=== PATIENT | female | born 1975 | race Hispanic/Latino ===

== ENCOUNTER 2020-04-03 23:20 | Emergency (ER) | payer BC ==
[2020-04-04 00:22] VITALS: BP 121/71
[2020-04-04] MEDS ORDERED: IBUPROFEN 600 MG TAB PO ONE (04:08)
[2020-04-04] MEDS ORDERED: ACETAMINOPHEN 500 MG TAB PO ONE (04:08)
--- NOTE | 2020-04-04 05:14 | XRay Report ---
SACRUM AND COCCYX 3 VIEWS INDICATION / CLINICAL INFORMATION: Pain: fall. COMPARISON: None available. FINDINGS: Mild irregularity at the sacrococcygeal junction. No other significant skeletal abnormality Signer Name: Christophe Jeffries MD FACR Signed: 04/04/2020 5:10 AM Workstation Name: [id number]
--- NOTE | 2020-04-04 05:58 | Emergency Department Report ---
ED Fall HPI - General Chief Complaint: Fall Stated Complaint: FALL INJURY HURT TAILBONE BACK Source: patient Mode of arrival: Ambulatory - History of Present Illness Initial Comments: Patient is a 45-year-old white female with a history of bipolar disorder and who is currently at a drug rehab facility presents to the ED with complaint of acute onset persistent severe coccygeal pain after she fell off a chair but broke off about 12 hours ago. Patient states that there was sitting sharing the chair with another individual when their weight broke off the chair which she states was old and the ended up falling off the chair and landing on the concrete floor. Patient states that the pain was initially mild but subsequently she woke up with severe coccygeal pain 6 hours later. Patient states that the pain has been persistent and worse with ambulation or active range of motion. Patient denies loss of consciousness, dizziness, nausea, vomiting, numbness and tingling or weakness of lower extremities bilaterally, hematuria, vaginal bleeding, syncope, head or neck injuries, change in vision or back pain and abdominal pain. MD Complaint: fall, other (coccygeal and tailbone pain) -: Sudden, hour(s) (12) Fall From: chair, other (fell off a chair after the chair broke) When Fall Occurred: other (12 hours ago) Fall Witnessed: yes, by bystander, yes, by living facility s Place Fall Occurred: [facility] Loss of Consciousness: none Prolonged Down Time?: no Symptoms Prior to Fall: none Location: back (lower ) Severity: severe Severity scale (0 -10): 7 Quality: sharp, aching Context: other (fell off a chair after the chair broke off) Associated Symptoms: denies. denies: headache, neck pain, numbness, weakness, chest paint, shortness of breath, abdominal pain, hematuria, unable to walk, lightheaded, vertigo, confusion, other - Related Data Previous Rx's Medication Instructions Recorded Last Taken Type Ibuprofen [Motrin] 800 mg PO Q8HR PRN #24 tablet 04/04/20 Unknown Rx Allergies Allergy/AdvReac Type Severity Reaction Status Date / Time No Known Allergies Allergy Unverified 04/04/20 00:17 ED Review of Systems ROS: Stated complaint: FALL INJURY HURT TAILBONE BACK Other details as noted in HPI Constitutional: denies: chills, fever Eyes: denies: eye pain, eye discharge, vision change ENT: denies: ear pain, throat pain Respiratory: denies: cough, shortness of breath, wheezing Cardiovascular: denies: chest pain, palpitations Endocrine: no symptoms reported Gastrointestinal: denies: abdominal pain, nausea, diarrhea Genitourinary: denies: urgency, dysuria, discharge Musculoskeletal: back pain (coccygeal and tail bone pain), arthralgia, myalgia. denies: joint swelling Skin: denies: rash, lesions Neurological: denies: headache, weakness, paresthesias Psychiatric: denies: anxiety, depression Hematological/Lymphatic: denies: easy bleeding, easy bruising ED Past Medical Hx - Past Medical History Previous Medical History?: Yes Hx Psychiatric Treatment: Yes (bipolar) - Surgical History Past Surgical History?: No Hx Cholecystectomy: Yes Additional Surgical History: Duodenal switch, hernia - Social History Smoking Status: Current Every Day Smoker Substance Use Type: Marijuana - Medications Home Medications: Home Medications Medication Instructions Recorded Confirmed Last Taken Type Ibuprofen [Motrin] 800 mg PO Q8HR PRN #24 tablet 04/04/20 Unknown Rx ED Physical Exam - General Limitations: No Limitations General appearance: alert, in no apparent distress - Head Head exam: Present: atraumatic, normocephalic, normal inspection - Eye Eye exam: Present: normal appearance, PERRL, EOMI Pupils: Present: normal accommodation - ENT ENT exam: Present: normal exam, normal orophraynx, mucous membranes moist, TM's normal bilaterally, normal external ear exam - Neck Neck exam: Present: normal inspection, full ROM. Absent: tenderness - Respiratory Respiratory exam: Present: normal lung sounds bilaterally. Absent: respiratory distress, wheezes, rales, stridor, chest wall tenderness, accessory muscle use, decreased breath sounds - Cardiovascular Cardiovascular Exam: Present: regular rate, normal rhythm, normal heart sounds. Absent: systolic murmur, diastolic murmur, rubs, gallop - GI/Abdominal GI/Abdominal exam: Present: soft, normal bowel sounds. Absent: tenderness, guarding, hyperactive bowel sounds - Extremities Exam Extremities exam: Present: normal inspection, full ROM, normal capillary refill - Back Exam Back exam: Present: normal inspection, full ROM, tenderness (Palpable severe coccygeal and sacral tenderness), muscle spasm, paraspinal tenderness. Absent: CVA tenderness (R), vertebral tenderness - Neurological Exam Neurological exam: Present: alert, oriented X3, CN II-XII intact, normal gait, reflexes normal - Psychiatric Psychiatric exam: Present: normal affect, normal mood, anxious - Skin Skin exam: Present: warm, dry, intact, normal color. Absent: rash ED Course Vital Signs 04/04/20 00:17 Temperature 97.7 F Pulse Rate 75 Respiratory 18 Rate Blood Pressure 121/71 O2 Sat by Pulse 100 Oximetry ED Medical Decision Making - Radiology Data Radiology results: report reviewed, image reviewed Findings [address] [address] XRay Report Signed Patient: DMITRIY RICO MR#: [id number] : 1975 Acct:[id number] Age/Sex: 45 / F ADM Date: 04/03/20 Loc: ED Attending Dr: Ordering Physician: TEZ OJEDA Date of Service: 04/04/20 Procedure(s): XR spine sacrum/coccyx 2+V Accession Number(s): [id number] cc: TEZ OJEDA Fluoro Time In Minutes: SACRUM AND COCCYX 3 VIEWS INDICATION / CLINICAL INFORMATION: Pain: fall. COMPARISON: None available. FINDINGS: Mild irregularity at the sacrococcygeal junction. No other significant skeletal abnormality Signer Name: Christophe Jeffries MD FACR Signed: 04/04/2020 5:10 AM Workstation Name: [id number] Transcribed By: MS Dictated By: Christophe Jeffries MD Electronically Authenticated By: Christophe Jeffries MD Signed Date/Time: 04/04/20 0510 DD/ 0509 TD/TT: - Medical Decision Making This is a 45-year-old white female with a history of bipolar disorder and who is currently at a drug rehab facility presents to the ED with complaint of acute onset persistent severe coccygeal pain after she fell off a chair but broke off about 12 hours ago. Patient states that there was sitting sharing the chair with another individual when their weight broke off the chair which she states was old and the ended up falling off the chair and landing on the concrete floor. Patient states that the pain was initially mild but subsequently she woke up with severe coccygeal pain 6 hours later. Patient states that the pain has been persistent and worse with ambulation or active range of motion. In the ED, patient is alert and oriented x3 and is not in distress but anxious. Patient was treated for pain in the ED and coccygeal and sacral x-ray showed a mild irregularity at the sacrococcygeal junction. No other significant skeletal abnormality. On reevaluation, patient's pain is well controlled medications. Patient was discharged home on pain medication and advised to follow-up with her primary care physician in 5 to 7 days for reevaluation or return to the ED immediately if symptoms get worse. - Differential Diagnosis Coccygeal contusion; Coccygeal fracture; Muscle spasm Critical care attestation.: If time is entered above; I have spent that time in minutes in the direct care of this critically ill patient, excluding procedure time. ED Disposition Clinical Impression: Muscle spasm Coccygeal contusion Qualifiers: Encounter type: initial encounter Qualified Code(s): S30.0XXA - Contusion of lower back and pelvis, initial encounter Contusion of sacrum Qualifiers: Encounter type: initial encounter Qualified Code(s): S30.0XXA - Contusion of lower back and pelvis, initial encounter Disposition: DC- TO HOME OR SELFCARE Is pt being admited?: No Does the pt Need Aspirin: No Condition: Stable Instructions: Coccyx Injury (ED), Muscle Spasm (ED) Additional Instructions: The coccygeal x-ray shows no acute fractures or subluxations. Take pain medication as needed with food, drink plenty of fluids and follow-up with your primary care physician in 5 to 7 days for reevaluation. Return to the ED immediately if symptoms get worse. Prescriptions: Ibuprofen [Motrin] 800 mg PO Q8HR PRN #24 tablet PRN Reason: Pain , Severe (7-10) Referrals: [facility] [Outside] - 3-5 Days Forms: Work/School Release Form(ED) Time of Disposition: 06:03 Print Language: MOLDOVAN
[2020-04-05] MEDS ORDERED: NORepinephrine/NS 4 MG-250 ML 0 MG/0 ML BAG IV ONE (19:48)
== END 2020-04-04 06:10 | disposition home or self-care (01) ==
LOC: ED 23:20
DX: S30.0XXA Contusion of lower back and pelvis, initial encounter (principal); M62.830 Muscle spasm of back; F31.9 Bipolar disorder, unspecified; F17.200 Nicotine dependence, unspecified, uncomplicated; F12.10 Cannabis abuse, uncomplicated; Z90.49 Acquired absence of other specified parts of digestive tract; Z98.890 Other specified postprocedural states; Z79.1 Long term (current) use of non-steroidal anti-inflammatories (NSAID); W07.XXXA Fall from chair, initial encounter; Y93.89 Activity, other specified; Y92.89 Other specified places as the place of occurrence of the external cause; Y99.8 Other external cause status
CPT/HCPCS: 72220